=== PATIENT | female | born 1950 ===

== ENCOUNTER 2019-08-02 08:57 | Inpatient (IN) ==
[2019-08-02] MEDS ORDERED: DEXTROSE 10% 250 ML BAG IV PRN (09:06)
[2019-08-02] MEDS ORDERED: GLUCAGON 1 MG VIAL IM PRN (09:06)
[2019-08-02] MEDS ORDERED: CEFUROXIME INJ 1,500 MG in SYRINGE 1 EACH IV ONE (09:06)
[2019-08-02 09:35] LABS: ABG Base Excess -3.4 MMOL/L (-2.5-2.5); ABG HCO3 21.6 MMOL/L (20-26); ABG Oxygen Saturation 99.2 % (95-100); ABG PCO2 25.2 MM HG (35-48); ABG TCO2 16.6 MMOL/L (23-27)
[2019-08-02 10:06] LABS: Basophils # 0.1 10*3/uL (0.0-0.2); Basophils % 0.7 % (0.0-0.8); Eosinophils # 0.3 10*3/uL (0.0-0.87); Eosinophils % 4.1 % (0.00-10.9); Hematocrit 36.6 VOL% (35.7-47.0); Hemoglobin 12.1 GM/DL (12.0-16.0); Immature Granulocytes % 0.5 %; Immature Granulocytes Absolute 0.04 #; Lymphocytes # 1.3 10*3/uL (1.4-4.0); Lymphocytes % 18.3 % (21.3-54.2); Mean Corpuscular HGB Conc 33.1 GM/DL (32-36); Mean Corpuscular Volume 91.3 FL (87-102); Mean Platelet Volume 10.3 FL (9.6-12.0); Monocytes % 7.8 % (1.7-12.7); Neutrophils % 68.6 % (38.7-73.9); Platelet Count 254 T/CUMM (130-400); Red Blood Count 4.01 MC/CUMM (3.8-5.5); Red Cell Distribution Width 13.3 % (9.3-17.3); White Blood Count 7.3 T/CUMM (4-12)
[2019-08-02 10:42] LABS: Albumin 3.9 G/DL (3.4-5.0); Bilirubin,Total 0.6 MG/DL (0.2-1.0); Calcium 8.7 MG/DL (8.5-10.1); Osmolality,Calculated 267.7 MOS/KG (273-304); Total Protein 8.8 G/DL (6.4-8.3)
[2019-08-02] MEDS ORDERED: CLORAZEPATE 3.75 MG TABLET PO PRN (12:38)
[2019-08-02] MEDS ORDERED: hydrALAZINE 20 MG/1 ML VIAL IV PRN (12:39)
[2019-08-02] MEDS: INSULIN LISPRO 100 UNIT/ML SUBCUT SCH ×3 (13:19→21:18)
[2019-08-02] MEDS ORDERED: FAMOTIDINE 20 MG TABLET PO ONE ×2 (15:22→17:00)
[2019-08-02] MEDS: CHLORHEXIDINE 4% SOLN 118 ML BOTTLE TOP SCH ×2 (16:18→21:19)
[2019-08-02] MEDS ORDERED: PANTOPRAZOLE 40 MG TABLET PO ONE (17:00)
[2019-08-02] MEDS ORDERED: CALCIUM CARBONATE CHEW 500 MG TABLET PO ONE (20:24)
[2019-08-02] MEDS: CHLORHEXIDINE 0.12% ORAL RINSE 60 ML BOTTLE SWISH/SPIT SCH (21:18)
[2019-08-03] MEDS ORDERED: PAPAVERINE 60 MG/2 ML VIAL ONE (04:21)
[2019-08-03] MEDS ORDERED: VANCOMYCIN 1,000 MG VIAL ONE (04:22)
[2019-08-03] MEDS ORDERED: VANCOMYCIN 500 MG VIAL ONE (04:22)
[2019-08-03] MEDS: CHLORHEXIDINE 4% SOLN 118 ML BOTTLE TOP SCH ×2 (05:46→10:15)
[2019-08-03] MEDS ORDERED: HEPARIN/NACL 0.9% 2 UNITS/ML 500 ML IV ONE (05:58)
[2019-08-03] MEDS ORDERED: PHENYLEPHRINE DRIP 20 MG/250 ML PREMIX IV ONE (05:58)
[2019-08-03] MEDS ORDERED: SUFentanil 250 MCG/5 ML AMP ONE (05:59)
[2019-08-03] MEDS ORDERED: MIDAZOLAM 10 MG/2 ML VIAL ONE ×2 (05:59)
[2019-08-03] MEDS ORDERED: VECURONIUM 10 MG VIAL IV ONE (05:59)
[2019-08-03] MEDS ORDERED: DIAZEPAM 5 MG TABLET PO ONE (06:00)
[2019-08-03] MEDS ORDERED: FAMOTIDINE 20 MG TABLET PO ONE (06:00)
[2019-08-03] MEDS ORDERED: CEFUROXIME INJ 1,500 MG in SYRINGE 1 EACH IV ONE (06:00)
[2019-08-03] MEDS ORDERED: AMINOCAPROIC ACID 5,000 MG/20 ML VIAL ONE (06:00)
[2019-08-03 07:50] LABS: ABG Base Excess -5.6 MMOL/L (-2.5-2.5); ABG HCO3 19.9 MMOL/L (20-26); ABG Oxygen Saturation 99.8 % (95-100); ABG PCO2 39.5 MM HG (35-48); ABG PH 7.317 (7.35-7.45); ABG TCO2 18.6 MMOL/L (23-27); Glucose Heart Surgery 104 MG/DL (74-106); Hematocrit Heart Surgery 29.2 PERCENT (37-47); Hemoglobin Heart Surgery 9.4 G/DL (12.0-16.0); Ionized Calcium Arterial 1.09 MMOL/L (1.21-1.46); PCO2 Patient Temp Arterial 39.5 MMHG; PH Patient Temp Arterial 7.317; Patient Temperature 37 CELCIUS; Potassium Heart/CVR 3.7 MMOL/L (3.5-5.1); Sodium Heart/CVR 134 MMOL/L (135-145)
[2019-08-03] MEDS ORDERED: POTASSIUM CHLORIDE RIDER 100 ML IV ONE (07:55)
[2019-08-03] MEDS ORDERED: SODIUM BICARBONATE 50 MEQ/50 ML VIAL IV ONE ×3 (07:55→12:07)
[2019-08-03] MEDS ORDERED: PHENYLEPHRINE DRIP 40 MG/250 ML PREMIX IV ONE (07:55)
[2019-08-03] MEDS ORDERED: NITROPRUSSIDE 50 MG/2 ML VIAL ONE (07:55)
[2019-08-03] MEDS ORDERED: CALCIUM CHLORIDE 1,000 MG/10 ML SYRINGE IV ONE (07:55)
[2019-08-03 08:12] LABS: Apearance,Urine CLEAR (Clear); Bacteria,Urine Many /HPF (Few); Bilirubin,Urine Negative (Negative); Blood, Urine Negative (Negative); Glucose,Urine (UA) Negative (Negative); Ketones,Urine Negative (Negative); Nitrite,Urine Negative (Negative); Protein,Urine Negative; RBC,Urine 1 /HPF (0-4); Squamous Epithelial Cell,Urine Occasional /HPF (0-10); Urine Color Yellow (Yellow); Urine Specific Gravity 1.008 (1.001-1.035); Urine Urobilinogen < 2.0 EU/DL (0.2-1.0); WBC,Urine 2 /HPF (0-6)
[2019-08-03 09:04] LABS: Hematocrit Heart Surgery 19.9 PERCENT (37-47); PCO2 Patient Temp Venous 32.6 MM HG; PH Patient Temp Venous 7.453; PO2 Patient Temp Venous 44.7 MM HG; Potassium Heart/CVR 3.9 MMOL/L (3.5-5.1); VBG Base Excess -0.9 MEQ/L (0-4); VBG HCO3 23.6 MEQ/L (24-28); VBG Oxygen Saturation 83.9 %; VBG PCO2 32.6 MMHG (41-51); VBG PH 7.453; VBG PO2 44.7 MMHG (17-40)
[2019-08-03 09:06] LABS: Hemoglobin Heart Surgery 6.3 G/DL (12.0-16.0)
[2019-08-03 09:36] LABS: Hematocrit Heart Surgery 20.3 PERCENT (37-47); Hemoglobin Heart Surgery 6.5 G/DL (12.0-16.0); PH Patient Temp Venous 7.465; PO2 Patient Temp Venous 39.3 MM HG; Potassium Heart/CVR 4.1 MMOL/L (3.5-5.1); VBG Base Excess -1.6 MEQ/L (0-4); VBG HCO3 22.9 MEQ/L (24-28); VBG PCO2 34.6 MMHG (41-51); VBG PH 7.421; VBG PO2 48.2 MMHG (17-40)
[2019-08-03 10:05] LABS: Hematocrit Heart Surgery 26.8 PERCENT (37-47); Hemoglobin Heart Surgery 8.6 G/DL (12.0-16.0); PCO2 Patient Temp Venous 31.4 MM HG; PH Patient Temp Venous 7.481; PO2 Patient Temp Venous 33.2 MM HG; Potassium Heart/CVR 4.7 MMOL/L (3.5-5.1); VBG Base Excess 0.4 MEQ/L (0-4); VBG HCO3 24.5 MEQ/L (24-28); VBG Oxygen Saturation 78.1 %; VBG PCO2 34.6 MMHG (41-51); VBG PH 7.451; VBG PO2 38.3 MMHG (17-40)
[2019-08-03] MEDS: INSULIN LISPRO 100 UNIT/ML SUBCUT SCH ×2 (10:15→11:23)
[2019-08-03] MEDS: CHLORHEXIDINE 0.12% ORAL RINSE 60 ML BOTTLE SWISH/SPIT SCH ×2 (10:15→22:01)
[2019-08-03] MEDS: SODIUM CHLORIDE 0.9% 1,000 ML IV SCH (10:16)
[2019-08-03] MEDS ORDERED: THROMBIN TOPICAL (RECOMBINANT) 5,000 UNIT VIAL TOP ONE (10:27)
[2019-08-03 10:47] LABS: ABG Base Excess -4.1 MMOL/L (-2.5-2.5); ABG Oxygen Saturation 99.5 % (95-100); ABG PCO2 32.5 MM HG (35-48); ABG PH 7.398 (7.35-7.45); ABG TCO2 18.4 MMOL/L (23-27); Glucose Heart Surgery 221 MG/DL (74-106); Hematocrit Heart Surgery 28.7 PERCENT (37-47); Hemoglobin Heart Surgery 9.3 G/DL (12.0-16.0); Ionized Calcium Arterial 1.19 MMOL/L (1.21-1.46); PCO2 Patient Temp Arterial 32.5 MMHG; PH Patient Temp Arterial 7.398; Patient Temperature 37 CELCIUS; Potassium Heart/CVR 4.1 MMOL/L (3.5-5.1); Sodium Heart/CVR 133 MMOL/L (135-145)
[2019-08-03] MEDS ORDERED: MANNITOL 100 GM/500 ML BAG IV ONE (10:47)
[2019-08-03] MEDS ORDERED: HEPARIN 10,000 UNIT/10 ML VIAL ONE ×2 (10:47→12:10)
[2019-08-03] MEDS ORDERED: ALBUMIN 25% 25 GM/100 ML VIAL IV ONE (10:47)
[2019-08-03] MEDS ORDERED: FUROSEMIDE 20 MG/2 ML VIAL ONE (10:47)
[2019-08-03] MEDS ORDERED: LIDOCAINE 2% 5 ML VIAL ONE ×2 (10:47→12:07)
[2019-08-03] MEDS ORDERED: PROTAMINE SULFATE 50 MG/5 ML VIAL IV ONE (10:47)
[2019-08-03] MEDS ORDERED: methylPREDNISolone SOD SUC 1,000 MG/8 ML VIAL ONE (10:47)
[2019-08-03] MEDS ORDERED: DEXTROSE 5% KCL 20 MEQ 20 MEQ/1,000 ML BAG IV ONE (10:47)
[2019-08-03] MEDS ORDERED: MAGNESIUM SULFATE 5 GM/10 ML VIAL IV ONE (10:47)
[2019-08-03] MEDS ORDERED: SEVOFLURANE 1 UNIT/15 MINUTE INH ONE (12:07)
[2019-08-03] MEDS ORDERED: SUFentanil 50 MCG/ML AMP ONE (12:08)
[2019-08-03] MEDS ORDERED: PHENYLEPHRINE 1 MG/10 ML SYRINGE IV ONE (12:08)
[2019-08-03] MEDS ORDERED: ETOMIDATE 40 MG/20 ML VIAL IV ONE (12:08)
[2019-08-03] MEDS ORDERED: NITROGLYCERIN DRIP 50 MG/250 ML BOTTLE IV ONE (12:08)
[2019-08-03] MEDS ORDERED: CALCIUM CHLORIDE 1,000 MG/10 ML VIAL IV ONE (12:09)
[2019-08-03] MEDS ORDERED: SODIUM CHLORIDE 0.9% 250 ML IV ONE (12:10)
[2019-08-03] MEDS ORDERED: LACTATED RINGERS 1,000 ML IV ONE (12:10)
[2019-08-03] MEDS ORDERED: SODIUM CHLORIDE 0.9% 1,000 ML IV ONE (12:10)
[2019-08-03] MEDS ORDERED: INSULIN REGULAR 100 UNIT/ML IV ONE (12:11)
[2019-08-03] MEDS ORDERED: MAGNESIUM SULF RIDER 2 GM in PREMIX 1 EACH IV PRN (12:11)
[2019-08-03] MEDS ORDERED: MIDAZOLAM 2 MG/2 ML VIAL IV PRN (12:11)
[2019-08-03] MEDS ORDERED: LACTATED RINGERS 250 ML IV PRN (12:11)
[2019-08-03] MEDS ORDERED: ACETAMINOPHEN 650 MG SUPP RECTAL PRN (12:11)
[2019-08-03] MEDS ORDERED: CALCIUM CHLORIDE 1,000 MG/10 ML SYRINGE IV PRN (12:11)
[2019-08-03] MEDS ORDERED: DEXTROSE 10% 250 ML BAG IV PRN ×2 (12:11)
[2019-08-03] MEDS ORDERED: MORPHINE 10 MG/1 ML VIAL IV PRN (12:11)
[2019-08-03] MEDS ORDERED: MAGNESIUM SULF RIDER 4 GM in PREMIX 1 EACH IV PRN (12:11)
[2019-08-03] MEDS ORDERED: CHLORHEXIDINE 4% SOLN 118 ML BOTTLE TOP PRN (12:11)
[2019-08-03] MEDS ORDERED: VECURONIUM 10 MG VIAL IV PRN ×2 (12:11)
[2019-08-03] MEDS ORDERED: NITROPRUSSIDE 100 MG in DEXTROSE 5% 250 ML IV PRN (12:11)
[2019-08-03] MEDS ORDERED: PHENYLEPHRINE DRIP 40 MG/250 ML PREMIX IV PRN (12:11)
[2019-08-03] MEDS ORDERED: MIDAZOLAM 10 MG/2 ML VIAL IV PRN (12:11)
[2019-08-03] MEDS ORDERED: ONDANSETRON 4 MG/2 ML VIAL IV PRN (12:11)
[2019-08-03] MEDS ORDERED: SODIUM CHLORIDE 0.45% 1,000 ML IV SCH ×2 (12:11)
[2019-08-03] MEDS ORDERED: INSULIN REGULAR DRIP 100 ML IV SCH (12:11)
[2019-08-03 12:20] LABS: ABG Base Excess -5.4 MMOL/L (-2.5-2.5); ABG Oxygen Saturation 98.7 % (95-100); ABG PCO2 37.3 MM HG (35-48); ABG PH 7.335 (7.35-7.45); ABG TCO2 18.2 MMOL/L (23-27); Glucose Heart Surgery 216 MG/DL (74-106); Hematocrit Heart Surgery 31.3 PERCENT (37-47); Hemoglobin Heart Surgery 10.1 G/DL (12.0-16.0); Potassium Heart/CVR 3.2 MMOL/L (3.5-5.1)
[2019-08-03 12:23] LABS: Basophils % 0.4 % (0.0-0.8); Eosinophils # 0.1 10*3/uL (0.0-0.87); Eosinophils % 0.6 % (0.00-10.9); Hematocrit 30.3 VOL% (35.7-47.0); Immature Granulocytes % 0.6 %; Immature Granulocytes Absolute 0.05 #; Lymphocytes # 0.4 10*3/uL (1.4-4.0); Lymphocytes % 4.7 % (21.3-54.2); Mean Corpuscular Volume 89.6 FL (87-102); Mean Platelet Volume 10.6 FL (9.6-12.0); Monocytes % 3.8 % (1.7-12.7); Neutrophils % 89.9 % (38.7-73.9); Red Blood Count 3.38 MC/CUMM (3.8-5.5); Red Cell Distribution Width 14.6 % (9.3-17.3); White Blood Count 8.5 T/CUMM (4-12)
[2019-08-03 12:24] LABS: Platelet Count 121 T/CUMM (130-400)
[2019-08-03 12:30] LABS: INR 1.1; PT Patient Result 12.3 SECS (9.6-12.2); Partial Thromboplastin Time 32.1 SECS (20.8-36.0)
[2019-08-03] MEDS: POTASSIUM CHLORIDE RIDER 20 MEQ in PREMIX 1 EACH IV PRN ×5 (12:37→21:58)
[2019-08-03 12:42] LABS: CKMB % 6.8 %
[2019-08-03 12:44] LABS: Troponin I 7.82 NG/ML (0.00-0.045)
[2019-08-03 12:47] LABS: Albumin 2.8 G/DL (3.4-5.0); Bilirubin,Total 1.1 MG/DL (0.2-1.0); Calcium 7.6 MG/DL (8.5-10.1); Total Protein 5.8 G/DL (6.4-8.3)
[2019-08-03 13:12] LABS: Hypochromasia Slight; Lymphocytes 5 % (20-55); Microcytosis Slight; Ovalocytes Few; Platelet Estimate Adequate; Segmented Neutrophils 91 % (50-85); Total Cells Counted 100
[2019-08-03] MEDS: ALBUMIN 5% 12.5 GM in PREMIX 1 EACH IV PRN ×2 (13:29→15:08)
[2019-08-03 14:32] LABS: ABG Base Excess -5.3 MMOL/L (-2.5-2.5); ABG HCO3 19.5 MMOL/L (20-26); ABG PCO2 35.1 MM HG (35-48); ABG PH 7.362 (7.35-7.45); ABG PO2 128.7 MM HG (80-95); ABG TCO2 20.6 MMOL/L (23-27); Glucose Heart Surgery 182 MG/DL (74-106); Hemoglobin Heart Surgery 10.7 G/DL (12.0-16.0); Potassium Heart/CVR 3.9 MMOL/L (3.5-5.1)
[2019-08-03] MEDS: POTASSIUM CHLORIDE RIDER 10 MEQ in PREMIX 1 EACH IV PRN ×3 (15:48→22:30)
[2019-08-03 16:49] LABS: ABG Base Excess -6.1 MMOL/L (-2.5-2.5); ABG HCO3 19.4 MMOL/L (20-26); ABG PCO2 41.9 MM HG (35-48); ABG TCO2 18.7 MMOL/L (23-27); Glucose Heart Surgery 154 MG/DL (74-106); Hematocrit Heart Surgery 28.5 PERCENT (37-47); Hemoglobin Heart Surgery 9.2 G/DL (12.0-16.0); Potassium Heart/CVR 3.9 MMOL/L (3.5-5.1)
[2019-08-03] MEDS: INSULIN REGULAR 100 UNIT/ML IV PRN ×2 (18:03→22:00)
[2019-08-03 18:25] LABS: ABG HCO3 19.5 MMOL/L (20-26); ABG Oxygen Saturation 97.5 % (95-100); ABG PCO2 37.6 MM HG (35-48); ABG PH 7.323 (7.35-7.45); ABG PO2 95.4 MM HG (80-95); ABG TCO2 17.6 MMOL/L (23-27); Glucose Heart Surgery 183 MG/DL (74-106); Hematocrit Heart Surgery 35.5 PERCENT (37-47); Hemoglobin Heart Surgery 11.5 G/DL (12.0-16.0)
[2019-08-03] MEDS: MORPHINE 4 MG/1 ML VIAL IV PRN ×3 (18:41→23:27)
[2019-08-03] MEDS ORDERED: METOPROLOL SUCCINATE XL 25 MG TABLET PO ONE (19:50)
[2019-08-03] MEDS ORDERED: hydrALAZINE 20 MG/1 ML VIAL IV PRN (19:50)
[2019-08-03] MEDS: CEFUROXIME INJ 1,500 MG in SYRINGE 1 EACH IV SCH (20:04)
[2019-08-03 21:19] LABS: CKMB % 6.9 %
[2019-08-03 21:22] LABS: Troponin I 24.4 NG/ML (0.00-0.045)
[2019-08-03 21:48] LABS: ABG Base Excess -5.1 MMOL/L (-2.5-2.5); ABG HCO3 20.2 MMOL/L (20-26); ABG PCO2 40.5 MM HG (35-48); ABG PH 7.317 (7.35-7.45); ABG TCO2 18.6 MMOL/L (23-27); Glucose Heart Surgery 148 MG/DL (74-106); Hematocrit Heart Surgery 36.4 PERCENT (37-47); Hemoglobin Heart Surgery 11.8 G/DL (12.0-16.0); Potassium Heart/CVR 3.7 MMOL/L (3.5-5.1)
[2019-08-04] MEDS ORDERED: FUROSEMIDE 40 MG/4 ML VIAL IV ONE (03:06)
[2019-08-04 03:37] LABS: ABG HCO3 21.9 MMOL/L (20-26); ABG Oxygen Saturation 97.6 % (95-100); ABG PCO2 33.9 MM HG (35-48); ABG PH 7.401 (7.35-7.45); ABG PO2 88.2 MM HG (80-95); ABG TCO2 18.7 MMOL/L (23-27); Glucose Heart Surgery 110 MG/DL (74-106); Hematocrit Heart Surgery 36.1 PERCENT (37-47); Hemoglobin Heart Surgery 11.7 G/DL (12.0-16.0); Potassium Heart/CVR 4.2 MMOL/L (3.5-5.1)
[2019-08-04 03:48] LABS: Basophils % 0.1 % (0.0-0.8); Hematocrit 34.6 VOL% (35.7-47.0); Hemoglobin 11.4 GM/DL (12.0-16.0); Immature Granulocytes % 0.3 %; Immature Granulocytes Absolute 0.05 #; Lymphocytes # 0.6 10*3/uL (1.4-4.0); Lymphocytes % 3.8 % (21.3-54.2); Mean Corpuscular HGB Conc 32.9 GM/DL (32-36); Mean Corpuscular Volume 89.9 FL (87-102); Mean Platelet Volume 11.2 FL (9.6-12.0); Monocytes % 8.7 % (1.7-12.7); Neutrophils % 87.1 % (38.7-73.9); Platelet Count 139 T/CUMM (130-400); Red Blood Count 3.85 MC/CUMM (3.8-5.5); White Blood Count 15.1 T/CUMM (4-12)
[2019-08-04] MEDS: POTASSIUM CHLORIDE RIDER 20 MEQ in PREMIX 1 EACH IV PRN ×2 (03:51→06:17)
[2019-08-04 04:11] LABS: Albumin 3.6 G/DL (3.4-5.0); Bilirubin,Direct 0.27 MG/DL (0.0-0.20); Bilirubin,Total 1.4 MG/DL (0.2-1.0); Calcium 8.2 MG/DL (8.5-10.1); Osmolality,Calculated 281.5 MOS/KG (273-304); Total Protein 6.7 G/DL (6.4-8.3)
[2019-08-04 04:17] LABS: ABG Base Excess -4.5 MMOL/L (-2.5-2.5); ABG HCO3 20.7 MMOL/L (20-26); ABG Oxygen Saturation 98.1 % (95-100); ABG PCO2 33.8 MM HG (35-48); ABG PH 7.377 (7.35-7.45); ABG PO2 97.8 MM HG (80-95); ABG TCO2 17.7 MMOL/L (23-27); Glucose Heart Surgery 139 MG/DL (74-106); Hematocrit Heart Surgery 35.7 PERCENT (37-47); Hemoglobin Heart Surgery 11.6 G/DL (12.0-16.0); Potassium Heart/CVR 4.9 MMOL/L (3.5-5.1)
[2019-08-04 04:18] LABS: Anisocytosis Slight; Lymphocytes 5 % (20-55); Platelet Estimate Normal; Segmented Neutrophils 83 % (50-85); Total Cells Counted 100
[2019-08-04 04:19] LABS: Microcytosis Slight
[2019-08-04 04:29] LABS: Troponin I 40.8 NG/ML (0.00-0.045)
[2019-08-04 04:49] LABS: ABG Base Excess -5.6 MMOL/L (-2.5-2.5); ABG HCO3 19.9 MMOL/L (20-26); ABG Oxygen Saturation 98.4 % (95-100); ABG PCO2 33.6 MM HG (35-48); ABG PH 7.361 (7.35-7.45); Glucose Heart Surgery 151 MG/DL (74-106); Hematocrit Heart Surgery 36.1 PERCENT (37-47); Hemoglobin Heart Surgery 11.7 G/DL (12.0-16.0); Potassium Heart/CVR 4.6 MMOL/L (3.5-5.1)
[2019-08-04 05:22] LABS: ABG Base Excess -6.2 MMOL/L (-2.5-2.5); ABG HCO3 19.4 MMOL/L (20-26); ABG Oxygen Saturation 98.2 % (95-100); ABG PCO2 31.1 MM HG (35-48); ABG PH 7.372 (7.35-7.45); ABG TCO2 16.1 MMOL/L (23-27); Glucose Heart Surgery 162 MG/DL (74-106); Hematocrit Heart Surgery 36.2 PERCENT (37-47); Hemoglobin Heart Surgery 11.7 G/DL (12.0-16.0); Potassium Heart/CVR 4.5 MMOL/L (3.5-5.1)
[2019-08-04 06:12] LABS: ABG Base Excess -5.9 MMOL/L (-2.5-2.5); ABG HCO3 19.5 MMOL/L (20-26); ABG Oxygen Saturation 96.3 % (95-100); ABG PCO2 33.7 MM HG (35-48); ABG PH 7.354 (7.35-7.45); ABG PO2 81.5 MM HG (80-95); ABG TCO2 16.8 MMOL/L (23-27); Glucose Heart Surgery 165 MG/DL (74-106); Hematocrit Heart Surgery 36.4 PERCENT (37-47); Hemoglobin Heart Surgery 11.8 G/DL (12.0-16.0); Potassium Heart/CVR 4.1 MMOL/L (3.5-5.1)
[2019-08-04] MEDS: CEFUROXIME INJ 1,500 MG in SYRINGE 1 EACH IV SCH (07:44)
[2019-08-04] MEDS ORDERED: INSULIN REGULAR 100 UNIT/ML SUBCUT SCH (08:00)
[2019-08-04] MEDS: CHLORHEXIDINE 0.12% ORAL RINSE 60 ML BOTTLE SWISH/SPIT SCH ×2 (08:07→22:15)
[2019-08-04] MEDS: MORPHINE 4 MG/1 ML VIAL IV PRN (08:52)
[2019-08-04] MEDS ORDERED: CLORAZEPATE 3.75 MG TABLET PO PRN (09:19)
[2019-08-04] MEDS ORDERED: METOPROLOL SUCCINATE XL 25 MG TABLET PO ONE (09:32)
[2019-08-04] MEDS ORDERED: LOSARTAN 50 MG TABLET PO ONE (09:33)
[2019-08-04] MEDS ORDERED: MAGNESIUM SULF RIDER 2 GM in PREMIX 1 EACH IV PRN (10:45)
[2019-08-04] MEDS ORDERED: POLYETHYLENE GLYCOL POWDER 17 GM PACK PO PRN (10:45)
[2019-08-04] MEDS ORDERED: DEXTROSE 10% 25 GM/250 ML BAG IV PRN ×2 (10:45)
[2019-08-04] MEDS ORDERED: ONDANSETRON 4 MG/2 ML VIAL IV PRN (10:45)
[2019-08-04] MEDS ORDERED: MAGNESIUM SULF RIDER 4 GM in PREMIX 1 EACH IV PRN (10:45)
[2019-08-04] MEDS ORDERED: MAGNESIUM HYDROXIDE SUSP 30 ML UDCUP PO PRN (10:45)
[2019-08-04] MEDS ORDERED: ACETAMINOPHEN 325 MG TABLET PO PRN (10:45)
[2019-08-04] MEDS ORDERED: [UNRECOGNIZED DRUG - OTHER] TOP PRN (10:45)
[2019-08-04] MEDS ORDERED: SODIUM CHLOR 0.45% KCL 20 MEQ 20 MEQ/1,000 ML BAG IV SCH (10:45)
[2019-08-04] MEDS ORDERED: GLUCAGON 1 MG VIAL IM PRN ×2 (10:45)
[2019-08-04] MEDS ORDERED: ALUMINUM/MAGNES/SIMETH MAX STR 30 ML UDCUP PO PRN (10:45)
[2019-08-04] MEDS: oxyCODONE/ACETAMINOPHEN 5-325 MG TABLET PO PRN ×3 (11:16→22:15)
[2019-08-04] MEDS: [UNRECOGNIZED DRUG - OTHER] TOP SCH ×2 (11:42→22:14)
[2019-08-04] MEDS: IRON CARBONYL VITAMIN C PO SCH (22:14)
[2019-08-04] MEDS: ZALEPLON 5 MG CAPSULE PO PRN (22:15)
[2019-08-05] MEDS ORDERED: FUROSEMIDE 40 MG/4 ML VIAL IV ONE (06:00)
[2019-08-05 06:41] LABS: Basophils % 0.1 % (0.0-0.8); Hematocrit 35.1 VOL% (35.7-47.0); Hemoglobin 11.4 GM/DL (12.0-16.0); Immature Granulocytes % 0.6 %; Immature Granulocytes Absolute 0.09 #; Lymphocytes # 1.1 10*3/uL (1.4-4.0); Mean Corpuscular HGB Conc 32.5 GM/DL (32-36); Mean Corpuscular Volume 92.4 FL (87-102); Mean Platelet Volume 11.3 FL (9.6-12.0); Monocytes % 10.4 % (1.7-12.7); Neutrophils % 81.9 % (38.7-73.9); Platelet Count 133 T/CUMM (130-400); Red Cell Distribution Width 15.1 % (9.3-17.3); White Blood Count 15.8 T/CUMM (4-12)
[2019-08-05 07:06] LABS: Alanine Aminotransferase 33 U/L (13-56); Albumin 3.6 G/DL (3.4-5.0); Alkaline Phosphatase 71 U/L (45-117); Aspartate Amino Transferase 147 U/L (0-37); Blood Urea Nitrogen 35 MG/DL (7-18); Calcium 8.6 MG/DL (8.5-10.1); Estimated Glom Filtration Rate 32 ML/MIN; Glucose 155 MG/DL (74-106); Osmolality,Calculated 276.4 MOS/KG (273-304); Total Protein 7.3 G/DL (6.4-8.3)
[2019-08-05] MEDS: LOSARTAN 50 MG TABLET PO SCH (08:53)
[2019-08-05] MEDS: METOPROLOL SUCCINATE XL 25 MG TABLET PO SCH (08:53)
[2019-08-05] MEDS: ASPIRIN EC 81 MG TABLET PO SCH (08:53)
[2019-08-05] MEDS: CHLORHEXIDINE 0.12% ORAL RINSE 60 ML BOTTLE SWISH/SPIT SCH ×2 (08:53→20:59)
[2019-08-05] MEDS: FERROUS SULFATE 325 MG TABLET PO SCH (08:53)
[2019-08-05] MEDS: amLODIPine 10 MG TABLET PO SCH (08:53)
[2019-08-05] MEDS: MULTIVITAMIN (BEROCCA) TABLET PO SCH (08:53)
[2019-08-05] MEDS: DOCUSATE SODIUM 100 MG CAPSULE PO SCH (08:53)
[2019-08-05] MEDS: SIMVASTATIN 10 MG TABLET PO SCH (08:53)
[2019-08-05] MEDS: PANTOPRAZOLE 40 MG TABLET PO SCH (08:53)
[2019-08-05] MEDS: [UNRECOGNIZED DRUG - OTHER] TOP SCH ×2 (09:00→20:59)
[2019-08-05] MEDS: IRON CARBONYL VITAMIN C PO SCH ×2 (09:01→20:59)
[2019-08-05] MEDS: oxyCODONE/ACETAMINOPHEN 5-325 MG TABLET PO PRN (11:20)
[2019-08-05] MEDS: ZALEPLON 5 MG CAPSULE PO PRN (21:26)
[2019-08-06 04:51] LABS: Basophils % 0.2 % (0.0-0.8); Eosinophils % 0.1 % (0.00-10.9); Hematocrit 32.3 VOL% (35.7-47.0); Hemoglobin 10.6 GM/DL (12.0-16.0); Immature Granulocytes % 0.5 %; Immature Granulocytes Absolute 0.06 #; Lymphocytes # 1.2 10*3/uL (1.4-4.0); Lymphocytes % 9.1 % (21.3-54.2); Mean Corpuscular HGB Conc 32.8 GM/DL (32-36); Mean Platelet Volume 11.1 FL (9.6-12.0); Neutrophils % 80.1 % (38.7-73.9); Platelet Count 124 T/CUMM (130-400); Red Blood Count 3.55 MC/CUMM (3.8-5.5); Red Cell Distribution Width 14.5 % (9.3-17.3)
[2019-08-06 05:23] LABS: Bilirubin,Direct 0.36 MG/DL (0.0-0.20); Bilirubin,Indirect 0.8 MG/DL (0.0-1.0); Bilirubin,Total 1.2 MG/DL (0.2-1.0); CKMB % 1.8 %; Calcium 8.2 MG/DL (8.5-10.1); Osmolality,Calculated 273.4 MOS/KG (273-304); Total Protein 6.6 G/DL (6.4-8.3)
[2019-08-06 05:24] LABS: Troponin I 28.5 NG/ML (0.00-0.045)
[2019-08-06] MEDS: POTASSIUM CHLORIDE 20 MEQ TABLET PO PRN ×2 (05:59→09:22)
[2019-08-06] MEDS ORDERED: ERGOCALCIFEROL 50,000 UNIT CAPSULE PO SCH (09:00)
[2019-08-06] MEDS: ASPIRIN EC 81 MG TABLET PO SCH (09:22)
[2019-08-06] MEDS: METOPROLOL SUCCINATE XL 25 MG TABLET PO SCH (09:22)
[2019-08-06] MEDS: amLODIPine 10 MG TABLET PO SCH (09:23)
[2019-08-06] MEDS: PANTOPRAZOLE 40 MG TABLET PO SCH (09:23)
[2019-08-06] MEDS: [UNRECOGNIZED DRUG - OTHER] TOP SCH ×2 (09:23→21:23)
[2019-08-06] MEDS: DOCUSATE SODIUM 100 MG CAPSULE PO SCH (09:23)
[2019-08-06] MEDS: IRON CARBONYL VITAMIN C PO SCH ×2 (09:23→21:23)
[2019-08-06] MEDS: LOSARTAN 50 MG TABLET PO SCH (09:23)
[2019-08-06] MEDS: FERROUS SULFATE 325 MG TABLET PO SCH (09:23)
[2019-08-06] MEDS: CHLORHEXIDINE 0.12% ORAL RINSE 60 ML BOTTLE SWISH/SPIT SCH ×2 (09:23→21:22)
[2019-08-06] MEDS: SIMVASTATIN 10 MG TABLET PO SCH (09:23)
[2019-08-06] MEDS: MULTIVITAMIN (BEROCCA) TABLET PO SCH (09:24)
[2019-08-06] MEDS: oxyCODONE/ACETAMINOPHEN 5-325 MG TABLET PO PRN (21:21)
[2019-08-06] MEDS: AMIODARONE 200 MG TABLET PO SCH (21:23)
[2019-08-07] MEDS: oxyCODONE/ACETAMINOPHEN 5-325 MG TABLET PO PRN ×2 (03:14→21:37)
[2019-08-07 05:19] LABS: Basophils % 0.2 % (0.0-0.8); Eosinophils # 0.1 10*3/uL (0.0-0.87); Eosinophils % 0.6 % (0.00-10.9); Hematocrit 32.2 VOL% (35.7-47.0); Hemoglobin 10.3 GM/DL (12.0-16.0); Immature Granulocytes % 0.5 %; Immature Granulocytes Absolute 0.05 #; Lymphocytes # 1.3 10*3/uL (1.4-4.0); Lymphocytes % 12.8 % (21.3-54.2); Mean Corpuscular Volume 92.5 FL (87-102); Mean Platelet Volume 11.7 FL (9.6-12.0); Monocytes % 10.4 % (1.7-12.7); Neutrophils % 75.5 % (38.7-73.9); Platelet Count 144 T/CUMM (130-400); Red Blood Count 3.48 MC/CUMM (3.8-5.5); Red Cell Distribution Width 14.6 % (9.3-17.3)
[2019-08-07 05:38] LABS: Albumin 2.9 G/DL (3.4-5.0); Bilirubin,Total 1.3 MG/DL (0.2-1.0); Calcium 7.8 MG/DL (8.5-10.1); Osmolality,Calculated 276.2 MOS/KG (273-304); Total Protein 5.8 G/DL (6.4-8.3)
[2019-08-07] MEDS: FERROUS SULFATE 325 MG TABLET PO SCH (09:16)
[2019-08-07] MEDS: PANTOPRAZOLE 40 MG TABLET PO SCH (09:16)
[2019-08-07] MEDS: SIMVASTATIN 10 MG TABLET PO SCH (09:16)
[2019-08-07] MEDS: DOCUSATE SODIUM 100 MG CAPSULE PO SCH (09:16)
[2019-08-07] MEDS: MULTIVITAMIN (BEROCCA) TABLET PO SCH (09:16)
[2019-08-07] MEDS: amLODIPine 10 MG TABLET PO SCH (09:16)
[2019-08-07] MEDS: [UNRECOGNIZED DRUG - OTHER] TOP SCH ×2 (09:17→20:46)
[2019-08-07] MEDS: METOPROLOL SUCCINATE XL 25 MG TABLET PO SCH (09:17)
[2019-08-07] MEDS: AMIODARONE 200 MG TABLET PO SCH ×2 (09:17→20:46)
[2019-08-07] MEDS: IRON CARBONYL VITAMIN C PO SCH ×2 (09:17→20:46)
[2019-08-07] MEDS: LOSARTAN 50 MG TABLET PO SCH (09:17)
[2019-08-07] MEDS: ASPIRIN EC 81 MG TABLET PO SCH (09:17)
[2019-08-07] MEDS: CHLORHEXIDINE 0.12% ORAL RINSE 60 ML BOTTLE SWISH/SPIT SCH ×2 (09:17→20:46)
[2019-08-08 05:08] LABS: Basophils % 0.2 % (0.0-0.8); Eosinophils # 0.2 10*3/uL (0.0-0.87); Eosinophils % 2.6 % (0.00-10.9); Immature Granulocytes % 0.6 %; Immature Granulocytes Absolute 0.05 #; Lymphocytes % 12.5 % (21.3-54.2); Mean Corpuscular HGB Conc 32.3 GM/DL (32-36); Mean Platelet Volume 11.3 FL (9.6-12.0); Monocytes % 12.6 % (1.7-12.7); Neutrophils % 71.5 % (38.7-73.9); Platelet Count 158 T/CUMM (130-400); Red Blood Count 3.37 MC/CUMM (3.8-5.5); Red Cell Distribution Width 14.2 % (9.3-17.3); White Blood Count 8.4 T/CUMM (4-12)
[2019-08-08 05:28] LABS: Alanine Aminotransferase 51 U/L (13-56); Albumin 2.8 G/DL (3.4-5.0); Alkaline Phosphatase 157 U/L (45-117); Aspartate Amino Transferase 58 U/L (0-37); Bilirubin,Indirect 0.6 MG/DL (0.0-1.0); Blood Urea Nitrogen 36 MG/DL (7-18); Calcium 7.8 MG/DL (8.5-10.1); Estimated Glom Filtration Rate 34 ML/MIN; Glucose 86 MG/DL (74-106); Osmolality,Calculated 270.5 MOS/KG (273-304); Total Protein 6.3 G/DL (6.4-8.3)
[2019-08-08 05:44] LABS: Eosinophils 3 % (0-10); Hypochromasia 1+; Lymphocytes 18 % (20-55); Microcytosis 1+; Segmented Neutrophils 71 % (50-85); Total Cells Counted 100
[2019-08-08 05:45] LABS: Platelet Estimate Adequate
[2019-08-08 08:20] VITALS: BP 141/67
[2019-08-08] MEDS: MULTIVITAMIN (BEROCCA) TABLET PO SCH (09:37)
[2019-08-08] MEDS: PANTOPRAZOLE 40 MG TABLET PO SCH (09:37)
[2019-08-08] MEDS: SIMVASTATIN 10 MG TABLET PO SCH (09:37)
[2019-08-08] MEDS: AMIODARONE 200 MG TABLET PO SCH (09:37)
[2019-08-08] MEDS: METOPROLOL SUCCINATE XL 25 MG TABLET PO SCH (09:37)
[2019-08-08] MEDS: CHLORHEXIDINE 0.12% ORAL RINSE 60 ML BOTTLE SWISH/SPIT SCH (09:37)
[2019-08-08] MEDS: ASPIRIN EC 81 MG TABLET PO SCH (09:37)
[2019-08-08] MEDS: LOSARTAN 50 MG TABLET PO SCH (09:37)
[2019-08-08] MEDS: DOCUSATE SODIUM 100 MG CAPSULE PO SCH (09:37)
[2019-08-08] MEDS: amLODIPine 10 MG TABLET PO SCH (09:37)
[2019-08-08] MEDS: FERROUS SULFATE 325 MG TABLET PO SCH (09:37)
[2019-08-08] MEDS: IRON CARBONYL VITAMIN C PO SCH (09:38)
[2019-08-08] MEDS: oxyCODONE/ACETAMINOPHEN 5-325 MG TABLET PO PRN (09:38)
[2019-08-08] MEDS: [UNRECOGNIZED DRUG - OTHER] TOP SCH (09:38)
== END 2019-08-08 12:11 | disposition home health service (06) | DRG 236 ==
LOC: N.TELES 08:57 → N.CVR 08-03 11:46 → N.TELES 08-04 11:02

== ENCOUNTER 2020-08-19 05:53 | Inpatient (IN) ==
[2020-07-30 14:58] LABS: Basophils % 0.6 % (0.0-0.8); Eosinophils # 0.3 10*3/uL (0.0-0.87); Eosinophils % 5.6 % (0.00-10.9); Hematocrit 32.8 VOL% (35.7-47.0); Hemoglobin 10.8 GM/DL (12.0-16.0); Immature Granulocytes % 0.4 %; Immature Granulocytes Absolute 0.02 #; Lymphocytes # 0.9 10*3/uL (1.4-4.0); Lymphocytes % 16.9 % (21.3-54.2); Mean Corpuscular HGB Conc 32.9 GM/DL (32-36); Mean Platelet Volume 11.3 FL (9.6-12.0); Monocytes % 9.4 % (1.7-12.7); Neutrophils % 67.1 % (38.7-73.9); Platelet Count 178 T/CUMM (130-400); Red Blood Count 3.49 MC/CUMM (3.8-5.5); Red Cell Distribution Width 14.3 % (9.3-17.3); White Blood Count 5.2 T/CUMM (4-12)
[2020-07-30 15:08] LABS: PT Patient Result 10.6 SECS (9.8-11.9)
[2020-07-30 15:30] LABS: Albumin 3.9 G/DL (3.4-5.0); Bilirubin,Total 0.5 MG/DL (0.2-1.0); Calcium 8.8 MG/DL (8.5-10.1); Osmolality,Calculated 282.7 MOS/KG (273-304); Potassium 4.3 MMOL/L (3.5-5.1)
[~2020-08-19 05:53] MED LIST: ceFAZolin 1,000 MG in SYRINGE 1 EACH IV ONE
[2020-08-19] MEDS ORDERED: LACTATED RINGERS 1,000 ML IV SCH (06:30)
[2020-08-19] MEDS ORDERED: ONDANSETRON 4 MG/2 ML VIAL ONE (06:31)
[2020-08-19] MEDS ORDERED: NITROGLYCERIN DRIP 50 MG/250 ML BOTTLE IV ONE (06:31)
[2020-08-19] MEDS ORDERED: propofoL 200 MG/20 ML VIAL IV ONE (06:31)
[2020-08-19] MEDS ORDERED: PHENYLEPHRINE 1 MG/10 ML SYRINGE IV ONE (06:31)
[2020-08-19] MEDS ORDERED: LIDOCAINE 2% 5 ML VIAL ONE (06:31)
[2020-08-19] MEDS ORDERED: HEPARIN/NACL 0.9% 2 UNITS/ML 500 ML IV ONE (06:31)
[2020-08-19] MEDS ORDERED: DEXAMETHASONE 4 MG/1 ML VIAL ONE (06:31)
[2020-08-19] MEDS ORDERED: SUCCINYLCHOLINE 200 MG/10 ML VIAL ONE (06:32)
[2020-08-19] MEDS ORDERED: SODIUM CHLORIDE 0.9% 1,000 ML IV ONE (06:32)
[2020-08-19] MEDS ORDERED: LACTATED RINGERS 1,000 ML IV ONE (06:32)
[2020-08-19] MEDS ORDERED: MIDAZOLAM 2 MG/2 ML VIAL ONE (06:32)
[2020-08-19] MEDS ORDERED: fentaNYL 100 MCG/2 ML VIAL ONE (06:32)
[2020-08-19] MEDS ORDERED: ROCURONIUM 50 MG/5 ML VIAL IV ONE (06:32)
[2020-08-19] MEDS ORDERED: PHENYLEPHRINE DRIP 20 MG/250 ML PREMIX IV ONE (06:32)
[2020-08-19] MEDS ORDERED: HEPARIN/NACL 0.9% 2 UNITS/ML 3,000 ML IV ONE (07:21)
[2020-08-19] MEDS ORDERED: FUROSEMIDE 40 MG/4 ML VIAL ONE (08:38)
[2020-08-19] MEDS ORDERED: SUGAMMADEX 200 MG/2 ML VIAL IV ONE (09:53)
[2020-08-19] MEDS ORDERED: ONDANSETRON 4 MG/2 ML VIAL IV PRN ×2 (11:12→11:43)
[2020-08-19] MEDS ORDERED: hydrALAZINE 20 MG/1 ML VIAL ONE (11:24)
[2020-08-19] MEDS ORDERED: HEPARIN 10,000 UNIT/10 ML VIAL ONE (11:24)
[2020-08-19] MEDS ORDERED: ALBUTEROL/IPRATROPIUM 3 ML NEB RESP TX ONE ×2 (11:30→13:00)
[2020-08-19] MEDS ORDERED: diphenhydrAMINE 50 MG/1 ML VIAL IV PRN (11:43)
[2020-08-19] MEDS ORDERED: PROMETHAZINE INJ 25 MG in SODIUM CHLORIDE 0.9% 50 ML IV PRN (11:43)
[2020-08-19] MEDS ORDERED: MEPERIDINE 25 MG/1 ML VIAL IV PRN (11:43)
[2020-08-19] MEDS ORDERED: HYDROmorphone 2 MG/1 ML VIAL IV PRN (11:43)
[2020-08-19 12:09] LABS: Hemoglobin 9.9 GM/DL (12.0-16.0)
[2020-08-19 12:30] LABS: Calcium 7.9 MG/DL (8.5-10.1)
[2020-08-19] MEDS: LACTATED RINGERS 1,000 ML IV SCH ×2 (13:00→23:32)
[2020-08-19] MEDS: HYDROmorphone 2 MG/1 ML VIAL IV PRN ×4 (13:00→13:15)
[2020-08-19] MEDS ORDERED: ACETAMINOPHEN 500 MG TABLET PO PRN (14:44)
[2020-08-19] MEDS ORDERED: DEXTROSE 50% 25 GM/50 ML VIAL IV PRN (15:05)
[2020-08-19] MEDS ORDERED: GLUCAGON 1 MG VIAL IM PRN (15:05)
[2020-08-19] MEDS ORDERED: IRON CARBONYL VITAMIN C PO SCH (21:00)
[2020-08-19] MEDS ORDERED: SIMVASTATIN 10 MG TABLET PO SCH (21:00)
[2020-08-19] MEDS: GABAPENTIN 100 MG CAPSULE PO SCH (21:02)
[2020-08-20] MEDS: LACTATED RINGERS 1,000 ML IV SCH ×3 (04:36→11:51)
[2020-08-20 06:07] LABS: Hematocrit 29.2 VOL% (35.7-47.0); Hemoglobin 9.5 GM/DL (12.0-16.0)
[2020-08-20 06:38] LABS: Calcium 7.8 MG/DL (8.5-10.1); Osmolality,Calculated 276.1 MOS/KG (273-304); Potassium 3.6 MMOL/L (3.5-5.1)
[2020-08-20] MEDS: GABAPENTIN 100 MG CAPSULE PO SCH (08:46)
[2020-08-20] MEDS ORDERED: ASPIRIN EC 81 MG TABLET PO SCH (09:00)
[2020-08-20] MEDS ORDERED: CLOPIDOGREL 75 MG TABLET PO SCH (09:00)
[2020-08-20] MEDS ORDERED: amLODIPine 10 MG TABLET PO SCH (09:00)
[2020-08-20] MEDS ORDERED: LOSARTAN 50 MG TABLET PO SCH (09:00)
[2020-08-20] MEDS ORDERED: MULTIVITAMIN (BEROCCA) TABLET PO SCH (09:00)
[2020-08-20] MEDS ORDERED: METOPROLOL SUCCINATE XL 50 MG TABLET PO SCH (09:00)
[2020-08-20] MEDS ORDERED: METOPROLOL SUCCINATE XL 25 MG TABLET PO ONE (11:19)
[2020-08-20 12:22] LABS: Bilirubin,Urine Negative (Negative); Blood, Urine Large mg/dL (Negative); Glucose,Urine (UA) 150 mg/dL (Negative); Ketones,Urine Negative (Negative); Nitrite,Urine Negative (Negative); Protein,Urine 30 MG/DL; RBC,Urine 1205 /HPF (0-4); Squamous Epithelial Cell,Urine Few /HPF (0-10); Urine Appearance CLEAR (Clear); Urine Color Yellow (Yellow); Urine Urobilinogen < 2.0 EU/DL (0.2-1.0)
[2020-08-20 13:08] VITALS: BP 150/58
== END 2020-08-20 16:13 | disposition home health service (06) | DRG 269 ==
LOC: N.OR 05:53 → N.SDSINP 05:55 → N.3E 14:37
PROVIDERS: ADMIT Surgery; ATTEND Surgery
PROC: IRERAAA (2020-08-19 08:15)

== ENCOUNTER 2021-11-30 11:38 | Observation (INO) ==
[2021-11-30 12:06] LABS: Basophils % 0.5 % (0.0-0.8); Eosinophils # 0.2 10*3/uL (0.0-0.87); Eosinophils % 2.6 % (0.00-10.9); Hematocrit 27.4 VOL% (35.7-47.0); Immature Granulocytes % 1.5 %; Immature Granulocytes Absolute 0.09 #; Lymphocytes # 0.6 10*3/uL (1.4-4.0); Lymphocytes % 10.6 % (21.3-54.2); Mean Corpuscular HGB Conc 32.8 GM/DL (32-36); Mean Corpuscular Volume 87.3 FL (87-102); Mean Platelet Volume 10.9 FL (9.6-12.0); Monocytes # 0.6 10*3/uL (0.11-0.8); Monocytes % 10.7 % (1.7-12.7); Neutrophils % 74.1 % (38.7-73.9); Platelet Count 220 T/CUMM (130-400); Red Blood Count 3.14 MC/CUMM (3.8-5.5); Red Cell Distribution Width 15.4 % (9.3-17.3); White Blood Count 5.9 T/CUMM (4-12)
[2021-11-30 12:17] LABS: PT Patient Result 11.3 SECS (10.5-12.0); Partial Thromboplastin Time 26.5 SECS (23.8-32.1)
[2021-11-30 12:24] LABS: Albumin 3.7 G/DL (3.4-5.0); Bilirubin,Total 0.6 MG/DL (0.20-1.00); Calcium 9.1 MG/DL (8.5-10.1); Osmolality,Calculated 285.1 MOS/KG (273-304); Total Protein 8.5 G/DL (6.4-8.2)
[2021-11-30] MEDS ORDERED: FUROSEMIDE 40 MG/4 ML VIAL IV STA (14:23)
[2021-11-30] MEDS ORDERED: ONDANSETRON 4 MG/2 ML VIAL IV PRN (15:22)
[2021-11-30] MEDS ORDERED: DEXTROSE 50% 25 GM/50 ML VIAL IV PRN (15:22)
[2021-11-30] MEDS ORDERED: ACETAMINOPHEN 325 MG TABLET PO PRN (15:22)
[2021-11-30] MEDS ORDERED: GLUCAGON 1 MG VIAL IM PRN ×2 (15:22)
[2021-11-30] MEDS ORDERED: POTASSIUM CHLORIDE 20 MEQ TABLET PO STA (15:29)
[2021-11-30] MEDS ORDERED: DEXTROSE 10% 250 ML BAG IV PRN (15:35)
[2021-11-30] MEDS ORDERED: ENOXAPARIN 80 MG/0.8 ML SYRINGE SUBCUT SCH (16:00)
[2021-11-30] MEDS ORDERED: MAGNESIUM SULF RIDER 4 GM/100 ML PREMIX IV PRN (16:40)
[2021-11-30] MEDS ORDERED: MAGNESIUM SULF RIDER 2 GM/50 ML PREMIX IV PRN (16:40)
[2021-11-30] MEDS: INSULIN REGULAR 100 UNIT/ML SUBCUT SCH ×2 (17:26→22:15)
[2021-11-30] MEDS: GABAPENTIN 100 MG CAPSULE PO SCH (21:40)
[2021-11-30] MEDS: IRON (CARBONYL)/VIT C/B12/FA TABLET PO SCH (21:40)
[2021-12-01 05:09] LABS: Basophils % 0.5 % (0.0-0.8); Eosinophils # 0.2 10*3/uL (0.0-0.87); Eosinophils % 2.5 % (0.00-10.9); Hematocrit 27.1 VOL% (35.7-47.0); Hemoglobin 8.7 GM/DL (12.0-16.0); Immature Granulocytes Absolute 0.06 #; Lymphocytes # 0.6 10*3/uL (1.4-4.0); Lymphocytes % 9.5 % (21.3-54.2); Mean Corpuscular HGB Conc 32.1 GM/DL (32-36); Mean Corpuscular Volume 89.4 FL (87-102); Monocytes # 0.9 10*3/uL (0.11-0.8); Monocytes % 15.4 % (1.7-12.7); Neutrophils % 71.1 % (38.7-73.9); Platelet Count 214 T/CUMM (130-400); Red Blood Count 3.03 MC/CUMM (3.8-5.5); Red Cell Distribution Width 15.2 % (9.3-17.3)
[2021-12-01 05:29] LABS: Albumin 3.4 G/DL (3.4-5.0); Bilirubin,Total 0.7 MG/DL (0.20-1.00); Calcium 8.7 MG/DL (8.5-10.1); Potassium 2.6 MMOL/L (3.5-5.1); Total Protein 8.2 G/DL (6.4-8.2)
[2021-12-01] MEDS: POTASSIUM CHLORIDE 20 MEQ TABLET PO PRN ×2 (06:10→09:44)
[2021-12-01] MEDS ORDERED: FUROSEMIDE 40 MG/4 ML VIAL IV SCH ×2 (08:00)
[2021-12-01] MEDS ORDERED: ASPIRIN EC 81 MG TABLET PO SCH (09:00)
[2021-12-01] MEDS ORDERED: PANTOPRAZOLE 40 MG TABLET PO SCH (09:00)
[2021-12-01] MEDS ORDERED: CLOPIDOGREL 75 MG TABLET PO SCH (09:00)
[2021-12-01] MEDS ORDERED: METOPROLOL SUCCINATE XL 100 MG TABLET PO SCH (09:00)
[2021-12-01] MEDS ORDERED: amLODIPine 10 MG TABLET PO SCH (09:00)
[2021-12-01] MEDS ORDERED: SIMVASTATIN 10 MG TABLET PO SCH (09:00)
[2021-12-01] MEDS: INSULIN REGULAR 100 UNIT/ML SUBCUT SCH ×2 (09:42→12:50)
[2021-12-01] MEDS: GABAPENTIN 100 MG CAPSULE PO SCH (09:48)
[2021-12-01] MEDS: IRON (CARBONYL)/VIT C/B12/FA TABLET PO SCH (09:48)
[2021-12-01 12:34] VITALS: BP 135/86
[2021-12-01] MEDS ORDERED: ENOXAPARIN 30 MG/0.3 ML SYRINGE SUBCUT SCH (17:00)
== END 2021-12-01 13:50 | disposition home or self-care (01) ==
LOC: N.EDINP 11:38 → N.ED 11:38 → SUATTDRO 15:22 → N.EDINP 12-01 02:00 → N.TELEN 12-01 02:32
PROVIDERS: ADMIT Internal Medicine; ATTEND Internal Medicine

== ENCOUNTER 2022-06-15 21:51 | Inpatient (IN) ==
[2022-06-15] MEDS ORDERED: SIMETHICONE CHEW 125 MG TABLET PO PRN (23:35)
[2022-06-15] MEDS ORDERED: hydrALAZINE 20 MG/1 ML VIAL IV PRN (23:35)
[2022-06-15] MEDS ORDERED: ONDANSETRON 4 MG/2 ML VIAL IV PRN (23:35)
[2022-06-15] MEDS ORDERED: AZITHROMYCIN INJ 500 MG in SODIUM CHLORIDE 0.9% 250 ML IV ONE (23:40)
[2022-06-15] MEDS ORDERED: GLUCAGON 1 MG VIAL IM PRN (23:46)
[2022-06-15] MEDS ORDERED: DEXTROSE 10% 250 ML BAG IV PRN (23:46)
[2022-06-16 00:22] LABS: Albumin 3.6 G/DL (3.4-5.0); Bilirubin,Total 0.6 MG/DL (0.20-1.00); Calcium 8.1 MG/DL (8.5-10.1); Osmolality,Calculated 277.7 MOS/KG (273-304); Total Protein 8.5 G/DL (6.4-8.2)
[2022-06-16 00:23] LABS: Ferritin 28.8 ng/mL (8-252)
[2022-06-16 00:31] LABS: Basophils % 0.3 % (0.0-0.8); Eosinophils % 0.2 % (0.00-10.9); Hematocrit 24.9 VOL% (35.7-47.0); Hemoglobin 8.1 GM/DL (12.0-16.0); Immature Granulocytes % 1.5 %; Immature Granulocytes Absolute 0.09 #; Lymphocytes # 0.7 10*3/uL (1.4-4.0); Lymphocytes % 11.5 % (21.3-54.2); Mean Corpuscular HGB Conc 32.5 GM/DL (32-36); Mean Corpuscular Volume 92.6 FL (87-102); Mean Platelet Volume 10.9 FL (9.6-12.0); Monocytes # 1.1 10*3/uL (0.11-0.8); Monocytes % 18.5 % (1.7-12.7); Platelet Count 172 T/CUMM (130-400); Red Blood Count 2.69 MC/CUMM (3.8-5.5); Red Cell Distribution Width 15.6 % (9.3-17.3); White Blood Count 5.9 T/CUMM (4-12)
[2022-06-16 00:39] LABS: INR 1.1; PT Patient Result 11.9 SECS (10.1-12.1)
[2022-06-16] MEDS ORDERED: POTASSIUM CHLORIDE 20 MEQ TABLET PO ONE ×2 (01:00→06:26)
[2022-06-16 01:06] LABS: Eosinophils 2 % (0-10); Lymphocytes 10 % (20-55); Platelet Estimate Adequate; Total Cells Counted 100
[2022-06-16] MEDS ORDERED: FUROSEMIDE 40 MG/4 ML VIAL IV ONE (01:07)
[2022-06-16 02:31] LABS: Basophils % 0.4 % (0.0-0.8); Eosinophils % 0.5 % (0.00-10.9); Hematocrit 25.1 VOL% (35.7-47.0); Hemoglobin 8.2 GM/DL (12.0-16.0); Immature Granulocytes Absolute 0.11 #; Lymphocytes # 0.6 10*3/uL (1.4-4.0); Lymphocytes % 11.7 % (21.3-54.2); Mean Corpuscular HGB Conc 32.7 GM/DL (32-36); Mean Corpuscular Volume 92.3 FL (87-102); Monocytes % 18.7 % (1.7-12.7); Neutrophils % 66.7 % (38.7-73.9); Platelet Count 174 T/CUMM (130-400); Red Blood Count 2.72 MC/CUMM (3.8-5.5); Red Cell Distribution Width 15.6 % (9.3-17.3); White Blood Count 5.5 T/CUMM (4-12)
[2022-06-16 02:53] LABS: Folate 9.73 NG/ML (5.38-24.0); Vitamin B12 531 PG/ML (211-911)
[2022-06-16 02:55] LABS: % Iron Saturation 15.9 % (18-50); Ferritin 33.9 ng/mL (8-252)
[2022-06-16 03:04] LABS: Hypochromia 1+; Lymphocytes 10 % (20-55); Microcytosis 1+; Platelet Estimate Adequate; Total Cells Counted 100
[2022-06-16 03:33] LABS: Sedimentation Rate-Westergren 126 MM/HR (0-30)
[2022-06-16 08:24] LABS: Hemoglobin A1 (Alkaline) 97.3 % (96.5-98.5); Hemoglobin A2 (Alkaline) 2.7 % (1.5-3.5)
[2022-06-16] MEDS: INSULIN REGULAR 100 UNIT/ML SUBCUT SCH ×4 (08:26→21:56)
[2022-06-16] MEDS ORDERED: POTASSIUM CHLORIDE 20 MEQ TABLET PO SCH (09:00)
[2022-06-16] MEDS ORDERED: AZITHROMYCIN 250 MG TABLET PO SCH (09:00)
[2022-06-16] MEDS ORDERED: FUROSEMIDE 40 MG/4 ML VIAL IV SCH (09:00)
[2022-06-16] MEDS: ASCORBIC ACID 500 MG TABLET PO SCH ×2 (09:59→21:56)
[2022-06-16] MEDS: POTASSIUM CHLORIDE 20 MEQ TABLET PO SCH ×2 (09:59→21:56)
[2022-06-16] MEDS: DOCUSATE SODIUM 100 MG CAPSULE PO SCH ×3 (09:59→22:06)
[2022-06-16] MEDS: OSELTAMIVIR 30 MG CAPSULE PO SCH (10:00)
[2022-06-16] MEDS: PANTOPRAZOLE 40 MG TABLET PO SCH (10:00)
[2022-06-16] MEDS: DEXAMETHASONE 4 MG/1 ML VIAL IV SCH (10:00)
[2022-06-16] MEDS: CHOLECALCIFEROL 1,000 UNIT TABLET PO SCH (10:00)
[2022-06-16] MEDS: SPIRONOLACTONE 25 MG TABLET PO SCH ×2 (10:00→21:57)
[2022-06-16] MEDS: ZINC GLUCONATE 50 MG TABLET PO SCH (10:00)
[2022-06-16] MEDS: guaiFENesin/DM ER 600-30 MG TABLET PO SCH ×2 (10:00→21:56)
[2022-06-16] MEDS: HEPARIN 5,000 UNIT/1 ML VIAL SUBCUT SCH ×2 (10:01→21:56)
[2022-06-16 10:36] LABS: Osmolality,Calculated 290.8 MOS/KG (273-304); Potassium 3.4 MMOL/L (3.5-5.1)
[2022-06-16] MEDS: SODIUM BICARB INJ 50 MEQ in SODIUM CHLORIDE 0.45% 1,000 ML IV SCH (13:47)
[2022-06-16] MEDS: SODIUM BICARBONATE 650 MG TABLET PO SCH (21:56)
[2022-06-16] MEDS: ACETAMINOPHEN 325 MG TABLET PO PRN (21:58)
[2022-06-17] MEDS: SODIUM BICARB INJ 50 MEQ in SODIUM CHLORIDE 0.45% 1,000 ML IV SCH (03:32)
[2022-06-17] MEDS: ACETAMINOPHEN 325 MG TABLET PO PRN (03:32)
[2022-06-17 06:27] LABS: Calcium 8.3 MG/DL (8.5-10.1); Osmolality,Calculated 281.4 MOS/KG (273-304); Potassium 3.7 MMOL/L (3.5-5.1)
[2022-06-17] MEDS ORDERED: FUROSEMIDE 40 MG/4 ML VIAL IV ONE (08:27)
[2022-06-17] MEDS ORDERED: SIMVASTATIN 10 MG TABLET PO SCH (09:00)
[2022-06-17] MEDS ORDERED: METOPROLOL SUCCINATE XL 100 MG TABLET PO SCH (09:00)
[2022-06-17] MEDS: INSULIN REGULAR 100 UNIT/ML SUBCUT SCH ×4 (10:07→21:34)
[2022-06-17] MEDS: ASCORBIC ACID 500 MG TABLET PO SCH ×2 (10:21→21:32)
[2022-06-17] MEDS: amLODIPine 10 MG TABLET PO SCH (10:22)
[2022-06-17] MEDS: CHOLECALCIFEROL 1,000 UNIT TABLET PO SCH (10:22)
[2022-06-17] MEDS: DOCUSATE SODIUM 100 MG CAPSULE PO SCH ×2 (10:22→21:32)
[2022-06-17] MEDS: ZINC GLUCONATE 50 MG TABLET PO SCH (10:23)
[2022-06-17] MEDS: SPIRONOLACTONE 25 MG TABLET PO SCH (10:23)
[2022-06-17] MEDS: OSELTAMIVIR 30 MG CAPSULE PO SCH (10:23)
[2022-06-17] MEDS: SODIUM BICARBONATE 650 MG TABLET PO SCH ×2 (10:23→21:34)
[2022-06-17] MEDS: PANTOPRAZOLE 40 MG TABLET PO SCH (10:23)
[2022-06-17] MEDS: CLOPIDOGREL 75 MG TABLET PO SCH (10:24)
[2022-06-17] MEDS: guaiFENesin/DM ER 600-30 MG TABLET PO SCH ×2 (10:24→21:32)
[2022-06-17] MEDS: HEPARIN 5,000 UNIT/1 ML VIAL SUBCUT SCH ×2 (10:24→21:32)
[2022-06-17] MEDS: cefTRIAXone 1,000 MG in SODIUM CHLORIDE 0.9% 100 ML IV SCH (10:25)
[2022-06-17] MEDS: DEXAMETHASONE 4 MG/1 ML VIAL IV SCH (10:26)
[2022-06-17] MEDS: ASPIRIN EC 81 MG TABLET PO SCH (10:27)
[2022-06-17] MEDS: AZITHROMYCIN INJ 500 MG in SODIUM CHLORIDE 0.9% 250 ML IV SCH (10:28)
[2022-06-17] MEDS ORDERED: ISOSORBIDE MONONITRATE 30 MG TABLET PO SCH (11:01)
[2022-06-17] MEDS ORDERED: DOXAZOSIN 1 MG TABLET PO ONE (11:03)
[2022-06-17] MEDS ORDERED: DAPAGLIFLOZIN 10 MG TABLET PO ONE (15:28)
[2022-06-17] MEDS: FUROSEMIDE 40 MG/4 ML VIAL IV SCH (16:53)
[2022-06-17] MEDS: DOXAZOSIN 1 MG TABLET PO SCH (21:32)
[2022-06-17] MEDS: carvediloL 25 MG TABLET PO SCH (21:32)
[2022-06-17] MEDS: SIMVASTATIN 10 MG TABLET PO SCH (21:32)
[2022-06-17] MEDS: ISOSORBIDE DINITRATE 20 MG TABLET PO SCH (21:34)
[2022-06-18 06:20] LABS: Basophils % 0.2 % (0.0-0.8); Hematocrit 21.7 VOL% (35.7-47.0); Immature Granulocytes % 1.1 %; Immature Granulocytes Absolute 0.05 #; Lymphocytes # 0.8 10*3/uL (1.4-4.0); Lymphocytes % 17.9 % (21.3-54.2); Mean Corpuscular HGB Conc 32.3 GM/DL (32-36); Mean Corpuscular Volume 92.7 FL (87-102); Monocytes # 0.5 10*3/uL (0.11-0.8); Monocytes % 10.4 % (1.7-12.7); Neutrophils % 70.4 % (38.7-73.9); Platelet Count 145 T/CUMM (130-400); Red Blood Count 2.34 MC/CUMM (3.8-5.5); Red Cell Distribution Width 15.8 % (9.3-17.3); White Blood Count 4.5 T/CUMM (4-12)
[2022-06-18 06:35] LABS: Calcium 7.9 MG/DL (8.5-10.1); Potassium 3.7 MMOL/L (3.5-5.1)
[2022-06-18] MEDS: INSULIN REGULAR 100 UNIT/ML SUBCUT SCH ×4 (07:30→20:50)
[2022-06-18] MEDS: HEPARIN 5,000 UNIT/1 ML VIAL SUBCUT SCH ×2 (10:04→20:50)
[2022-06-18] MEDS: FUROSEMIDE 40 MG/4 ML VIAL IV SCH ×2 (10:04→17:04)
[2022-06-18] MEDS: DEXAMETHASONE 4 MG/1 ML VIAL IV SCH (10:05)
[2022-06-18] MEDS: cefTRIAXone 1,000 MG in SODIUM CHLORIDE 0.9% 100 ML IV SCH (10:05)
[2022-06-18] MEDS: carvediloL 25 MG TABLET PO SCH ×2 (10:06→20:50)
[2022-06-18] MEDS: amLODIPine 10 MG TABLET PO SCH (10:06)
[2022-06-18] MEDS: ASCORBIC ACID 500 MG TABLET PO SCH ×2 (10:06→20:51)
[2022-06-18] MEDS: DOCUSATE SODIUM 100 MG CAPSULE PO SCH ×3 (10:06→21:03)
[2022-06-18] MEDS: CHOLECALCIFEROL 1,000 UNIT TABLET PO SCH (10:06)
[2022-06-18] MEDS: OSELTAMIVIR 30 MG CAPSULE PO SCH (10:07)
[2022-06-18] MEDS: DAPAGLIFLOZIN 10 MG TABLET PO SCH (10:07)
[2022-06-18] MEDS: PANTOPRAZOLE 40 MG TABLET PO SCH (10:07)
[2022-06-18] MEDS: ZINC GLUCONATE 50 MG TABLET PO SCH (10:07)
[2022-06-18] MEDS: ISOSORBIDE DINITRATE 20 MG TABLET PO SCH ×3 (10:07→20:51)
[2022-06-18] MEDS: CLOPIDOGREL 75 MG TABLET PO SCH (10:07)
[2022-06-18] MEDS: guaiFENesin/DM ER 600-30 MG TABLET PO SCH ×2 (10:07→20:51)
[2022-06-18] MEDS: ASPIRIN EC 81 MG TABLET PO SCH (10:07)
[2022-06-18] MEDS: SODIUM BICARBONATE 650 MG TABLET PO SCH ×2 (10:08→20:51)
[2022-06-18] MEDS: AZITHROMYCIN INJ 500 MG in SODIUM CHLORIDE 0.9% 250 ML IV SCH (11:04)
[2022-06-18] MEDS: SPIRONOLACTONE 25 MG TABLET PO SCH (20:49)
[2022-06-18] MEDS: DOXAZOSIN 1 MG TABLET PO SCH (20:50)
[2022-06-18] MEDS: SIMVASTATIN 10 MG TABLET PO SCH (20:51)
[2022-06-19 05:38] LABS: Basophils % 0.3 % (0.0-0.8); Hematocrit 22.4 VOL% (35.7-47.0); Hemoglobin 7.1 GM/DL (12.0-16.0); Immature Granulocytes % 1.5 %; Immature Granulocytes Absolute 0.06 #; Lymphocytes # 0.6 10*3/uL (1.4-4.0); Lymphocytes % 14.7 % (21.3-54.2); Mean Corpuscular HGB Conc 31.7 GM/DL (32-36); Mean Corpuscular Volume 96.1 FL (87-102); Mean Platelet Volume 11.7 FL (9.6-12.0); Monocytes # 0.5 10*3/uL (0.11-0.8); Monocytes % 12.9 % (1.7-12.7); Neutrophils % 70.6 % (38.7-73.9); Platelet Count 117 T/CUMM (130-400); Red Blood Count 2.33 MC/CUMM (3.8-5.5); Red Cell Distribution Width 15.9 % (9.3-17.3); White Blood Count 3.9 T/CUMM (4-12)
[2022-06-19 05:47] LABS: Calcium 7.2 MG/DL (8.5-10.1); Potassium 3.4 MMOL/L (3.5-5.1)
[2022-06-19] MEDS ORDERED: POTASSIUM CHLORIDE 20 MEQ TABLET PO ONE (06:42)
[2022-06-19 08:10] VITALS: BP 130/42
[2022-06-19] MEDS: INSULIN REGULAR 100 UNIT/ML SUBCUT SCH (08:40)
[2022-06-19] MEDS: cefTRIAXone 1,000 MG in SODIUM CHLORIDE 0.9% 100 ML IV SCH (09:04)
[2022-06-19] MEDS: FUROSEMIDE 40 MG/4 ML VIAL IV SCH (09:04)
[2022-06-19] MEDS: HEPARIN 5,000 UNIT/1 ML VIAL SUBCUT SCH (09:04)
[2022-06-19] MEDS: SODIUM BICARBONATE 650 MG TABLET PO SCH (09:05)
[2022-06-19] MEDS: DEXAMETHASONE 4 MG/1 ML VIAL IV SCH (09:05)
[2022-06-19] MEDS: ZINC GLUCONATE 50 MG TABLET PO SCH (09:06)
[2022-06-19] MEDS: ASCORBIC ACID 500 MG TABLET PO SCH (09:06)
[2022-06-19] MEDS: SPIRONOLACTONE 25 MG TABLET PO SCH (09:06)
[2022-06-19] MEDS: DOCUSATE SODIUM 100 MG CAPSULE PO SCH (09:06)
[2022-06-19] MEDS: CHOLECALCIFEROL 1,000 UNIT TABLET PO SCH (09:06)
[2022-06-19] MEDS: guaiFENesin/DM ER 600-30 MG TABLET PO SCH (09:07)
[2022-06-19] MEDS: ASPIRIN EC 81 MG TABLET PO SCH (09:07)
[2022-06-19] MEDS: PANTOPRAZOLE 40 MG TABLET PO SCH (09:07)
[2022-06-19] MEDS: carvediloL 25 MG TABLET PO SCH (09:07)
[2022-06-19] MEDS: DAPAGLIFLOZIN 10 MG TABLET PO SCH (09:07)
[2022-06-19] MEDS: CLOPIDOGREL 75 MG TABLET PO SCH (09:07)
[2022-06-19] MEDS: OSELTAMIVIR 30 MG CAPSULE PO SCH (09:08)
[2022-06-19] MEDS: ISOSORBIDE DINITRATE 20 MG TABLET PO SCH (09:08)
[2022-06-19] MEDS: amLODIPine 10 MG TABLET PO SCH (09:08)
[2022-06-19] MEDS: AZITHROMYCIN INJ 500 MG in SODIUM CHLORIDE 0.9% 250 ML IV SCH (09:09)
== END 2022-06-19 12:16 | disposition home or self-care (01) | DRG 177 ==
LOC: N.2E → SUATTDRO 22:30
PROVIDERS: ADMIT Internal Medicine; ATTEND Internal Medicine